=== PATIENT | male | born 1990 | race Caucasian/White ===

== ENCOUNTER 2024-02-27 20:34 | Emergency (ER) | payer OTHER ==
[~2024-02-27] VITALS: Ht 210.8 cm; Wt 113.0 kg
[2024-02-27] MEDS ORDERED: traMADol HCL 50 MG/TAB PO ONE (21:15)
[2024-02-27] MEDS ORDERED: KETOROLAC TROMETHAMINE 30 MG/ML SDV IM ONE (21:15)
[2024-02-28] MEDS ORDERED: MOTRIN800 MG PO (00:43)
[2024-02-28] MEDS ORDERED: ORPHENADRINE100 MG PO (00:43)
[2024-02-28 01:10] VITALS: BP 118/70
== END 2024-02-28 01:10 | disposition home or self-care (01) | DRG 556 ==
LOC: ED 20:34
DX: M25.511 Pain in right shoulder (principal); V53.6XXA Passenger in pick-up truck or van injured in collision with car, pick-up truck or van in traffic accident, initial encounter